=== PATIENT | female | born 1990 | race Hispanic/Latino ===

== ENCOUNTER 2019-01-13 17:24 | Emergency (ER) | payer SELFPAY ==
[~2019-01-13] VITALS: Ht 152.4 cm; Wt 54.4 kg
[2019-01-13] MEDS ORDERED: CYMBALTA30 MG PO (18:02)
[2019-01-13] MEDS ORDERED: ACETAMINOPHEN PO (18:02)
[2019-01-13] MEDS ORDERED: PROPRANOLOL HC160 MG PO (18:02)
[2019-01-13] MEDS ORDERED: CLONAZEPAM0.5 MG PO (18:02)
[2019-01-13] MEDS ORDERED: GABAPENTIN300 MG PO (18:02)
[2019-01-13] MEDS ORDERED: TOPIRAMATE25 MG PO (18:02)
[2019-01-13] MEDS ORDERED: MYSOLINE250 MG PO (18:02)
[2019-01-13] MEDS ORDERED: PROPAFENONE HC325 MG PO (18:02)
[2019-01-13] MEDS ORDERED: CODEINE PO (18:02)
[2019-01-13] MEDS ORDERED: BELBUCA BLADIN (18:02)
[2019-01-13 18:06] LABS: BASOPHILS # (AUTO) 0.1 (0.0-0.1); BASOPHILS % 0.5 % (0.0-1.0); EOSINOPHILS # (AUTO) 0.3 (0.0-0.4); EOSINOPHILS % 2.7 % (0.0-6.0); HEMATOCRIT 40.7 % (34.2-44.1); HEMOGLOBIN 14.1 g/dL (12.0-16.0); LYMPHOCYTES # (AUTO) 2.5 (1.0-3.2); MEAN CORPUSCULAR HGB CONC 34.6 g/dL (31-35); MEAN CORPUSCULAR VOLUME 89.5 fL (81-99); MONOCYTES # (AUTO) 0.6 (0.2-0.8); NEUTROPHILS # (AUTO) 6.9 (2.1-6.9); NEUTROPHILS % 66.4 % (38.7-80.0); PLATELET COUNT 253 x10e3/uL (140-360); RED BLOOD COUNT 4.55 x10e6/uL (3.6-5.1); RED CELL DISTRIBUTION WIDTH 12.3 % (11.7-14.4)
[2019-01-13 18:21] LABS: BLOOD UREA NITROGEN 9 mg/dL (7-26); BUN/CREATININE RATIO 13 (6-25); CALCIUM 9.9 mg/dL (8.4-10.2); CARBON DIOXIDE 27 mmol/L (22-29); CHLORIDE 101 mmol/L (98-107); CREATININE, SERUM 0.72 mg/dL (0.57-1.11); EST GLOMERULAR FILTRATION RATE > 60 ML/MIN (60-); GLUCOSE 89 mg/dL (74-118); POTASSIUM 3.4 mmol/L (3.5-5.1)
--- NOTE | 2019-01-13 18:28 | NUR ---
PATIENT BROUGHT TO ROOM 2 FROM ULTRASOUND
[2019-01-13 18:29] LABS: HCG,QUANTITATIVE 12.02 mIU/mL (0-10)
[2019-01-13 18:36] LABS: ANION GAP 14.4 mmol/L (8-16); SODIUM 139 mmol/L (136-145)
--- NOTE | 2019-01-13 19:13 | Diagnostic Imaging Report ---
Pelvic ultrasound transvaginal uterus CPT code: 56137 History: Vaginal bleeding, positive test (beta hCG 12.02 mIU/mL) LMP: 11/18/2018 Comparison: None. Findings: Images were obtained with the endovaginal probe. The uterus is anteverted. It measures 7.1 cm. The endometrium is prolific. There is no intrauterine gestational sac, single yolk sac or embryo. No fluid in the endometrial canal. The endometrial stripe thickness in 4 mm. Several nabothian cysts are in the cervix. There is no pelvic free fluid. The right ovary measures 1.5 x 1.9 x 3.2 cm. The echotexture is normal. No mass. The left ovary not visualized. Blood flow: There is normal blood flow to the ovaries on color and spectral Doppler examination. IMPRESSION:: 1. No evidence of intrauterine . Nonvisualization of the left ovary. An ectopic cannot be entirely excluded. Recommend serial beta hCGs and ultrasounds to establish trend. 2. Normal right ovary. Signed by: Dr. Nam Gama MD on 01/13/2019 7:10 PM
== END 2019-01-13 19:17 | disposition home or self-care (01) ==
LOC: ER 17:24
DX: O20.9 Hemorrhage in early pregnancy, unspecified (principal); O03.9 Complete or unspecified spontaneous abortion without complication
CPT/HCPCS: 36415; 76830; 80048; 84702; 85025; 86850; 86900; 99284